=== PATIENT | female | born 1985 | race Caucasian/White ===

== ENCOUNTER 2017-12-14 08:57 | Emergency (ER) | payer OTHER ==
[2017-12-14 09:10] VITALS: BP 117/84; PULSE 64; TEMP 97.8; BMI 39.9
[2017-12-14 09:40] LABS: URINE APPEARANCE CLEAR; URINE BILIRUBIN NEGATIVE (<2.0 mg/dL); URINE COLOR YELLOW; URINE GLUCOSE (UA) 3+ (NEGATIVE); URINE KETONE NEGATIVE (NEGATIVE); URINE LEUK ESTERASE 2+ (NEGATIVE); URINE NITRITE NEGATIVE (NEGATIVE); URINE PROTEIN NEGATIVE (NEGATIVE); URINE UROBILINOGEN NEGATIVE mg/dL (0.2-1.0)
[2017-12-14 09:43] LABS: HCG,QUALITATIVE URINE Negative
[2017-12-14 10:03] LABS: EPI CELLS RARE /HPF (FEW); URINE MUCUS RARE
--- NOTE | 2017-12-14 10:11 | PDOC ---
History of Present Illness - General Chief Complaint: Urinary Problem Stated Complaint: URINE PAIN Time Seen by Provider: 12/14/17 09:58 History Source: Patient Exam Limitations: No Limitations - History of Present Illness Initial Comments: 12/14/17 09:58 c/o 3 days urinary burning and urgency no fever no chills no abd or back pain lmp one month ago denies vaginal discharge. Past History - Past Medical History Allergies/Adverse Reactions: Allergies Allergy/AdvReac Type Severity Reaction Status Date / Time No Known Allergies Allergy Verified 12/14/17 09:05 Home Medications: Ambulatory Orders Cephalexin [Keflex] 500 mg PO BID #6 capsule 12/14/17 Phenazopyridine HCl [Pyridium -] 200 mg PO TID #6 tablet 12/14/17 COPD: No - Surgical History Cholecystectomy: Yes - Immunization History Immunization Up to Date: Yes - Suicide/Smoking/Psychosocial Hx Smoking History: Never smoked Hx Alcohol Use: No Drug/Substance Use Hx: No *Physical Exam - Vital Signs Last Vital Signs Temp Pulse Resp BP Pulse Ox 97.8 F 64 18 117/84 97 12/14/17 09:06 12/14/17 09:06 12/14/17 09:06 12/14/17 09:06 12/14/17 09:06 - Physical Exam General Appearance: Yes: Nourished, Appropriately Dressed HEENT: positive: EOMI, HOMA, TMs Normal, Pharynx Normal Neck: positive: Supple. negative: Tender Respiratory/Chest: positive: Lungs Clear, Normal Breath Sounds. negative: Chest Tender Cardiovascular: positive: Regular Rhythm, Regular Rate Musculoskeletal: positive: Normal Inspection. negative: CVA Tenderness, CVA Tenderness (L), Decreased Range of Motion, Muscle Spasm Extremity: positive: Normal Capillary Refill, Normal Inspection, Normal Range of Motion Integumentary: positive: Normal Color, Dry, Warm Neurologic: positive: [place] rug setter II-XII NML intact, Fully Oriented, Alert, Normal Mood/ Affect, Normal Response, Motor Strength /5 ED Treatment Course - ADDITIONAL ORDERS Additional order review: Laboratory Results 12/14/17 09:22 Urine Color Yellow Urine Appearance Clear Urine pH 5.0 Ur Specific [place] 1.022 Urine Protein Negative Urine Glucose (UA) 3+ H D Urine Ketones Negative Urine Blood 1+ H Urine Nitrite Negative Urine Bilirubin Negative Urine Urobilinogen Negative Ur Leukocyte Esterase 2+ H Urine HCG, Qual Negative Medical Decision Making - Medical Decision Making 12/14/17 09:58 cc: urinary urgency dysuria no fever neg cva tenderness will treat for UTI *DC/Admit/Observation/Transfer Diagnosis at time of Disposition: Urinary tract infection Qualifiers: Urinary tract infection type: acute cystitis Hematuria presence: with hematuria Qualified Code(s): N30.01 - Acute cystitis with hematuria - Discharge Dispostion Disposition: HOME Condition at time of disposition: Good - Prescriptions Prescriptions: Cephalexin [Keflex] 500 mg PO BID #6 capsule Phenazopyridine HCl [Pyridium -] 200 mg PO TID #6 tablet - Referrals - Patient Instructions Printed Discharge Instructions: DI for Urinary Tract Infection (UTI) Additional Instructions: drink at least 2 liters of water a day take the medication as prescribed return if any fever, chills vomiting or other concerns - Post Discharge Activity
== END 2017-12-14 10:31 | disposition home or self-care (01) ==
LOC: JERFT 08:57
DX: N30.01 Acute cystitis with hematuria (principal)
CPT/HCPCS: 81003; 81015; 84703; 87086; 99281-25

== ENCOUNTER 2018-06-24 11:05 | Inpatient (IN) | payer MEDICARE, OTHER ==
[2018-06-24] MEDS ORDERED: ACETAMINOPHEN 325 MG TABLET (FP) PO ONE (11:39)
--- NOTE | 2018-06-24 11:39 | PDOC ---
History of Present Illness - General Chief Complaint: Urinary Problem Stated Complaint: TOTAL BODY PAIN Time Seen by Provider: 06/24/18 11:38 History Source: Patient Exam Limitations: No Limitations - History of Present Illness Initial Comments: 06/24/18 11:40 CHIEF COMPLAINT: Abdominal pain HISTORY OF PRESENT ILLNESS: This is a [id number] with a history of frequent urinary tract infections (last 2 months ago) who presents with five days of subjective fevers/chills/rigors, dysuria, bilateral flank pain, and abdominal pain. She denies nausea/vomiting/diarrhea, cough, chest pain, throat pain, headache, rash, or any other symptoms. Vital signs on arrival are notable for T 100.7 and HR 120 at rest. REVIEW OF SYSTEMS: GENERAL/CONSTITUTIONAL: Subjective fevers/chills/rigors. No night sweats or weight loss. HEAD, EYES, EARS, NOSE AND THROAT: No change in vision. No ear pain or discharge. No sore throat. CARDIOVASCULAR: No chest pain or shortness of breath RESPIRATORY: No cough or wheezing. GASTROINTESTINAL: Bilateral flank pain, abdominal pain. GENITOURINARY: Dysuria, urinary frequency. MUSCULOSKELETAL: No joint or muscle swelling or pain. No neck or back pain. SKIN: No rash or easy bruising. NEUROLOGIC: No headache, vertigo, loss of consciousness, or change in strength/ sensation. ENDOCRINE: No increased thirst. No abnormal weight change HEMATOLOGIC/LYMPHATIC: No anemia, easy bleeding, or history of blood clots. ALLERGIC/IMMUNOLOGIC: No hives or skin allergy. PHYSICAL EXAM: GENERAL: Awake, alert, and fully oriented, in some distress secondary to pain. HEAD: No signs of trauma, normocephalic, atraumatic. EYES: PERRLA, EOMI, sclera anicteric, conjunctiva clear. ENT: Auricles normal inspection, hearing grossly normal, nares patent, oropharynx clear without exudates. Moist mucosa. NECK: Normal ROM, supple, no lymphadenopathy, JVD, or masses. LUNGS: Breathing even and unlabored on room air. Speaks full sentences, clear to auscultation bilaterally. HEART: Regular rate and rhythm, normal S1 and S2, no murmurs, rubs or gallops, peripheral pulses normal and equal bilaterally. ABDOMEN: Bilateral flank tenderness, diffuse abdominal tenderness without peritoneal signs. EXTREMITIES : Normal inspection, Normal range of motion, no edema. No clubbing or cyanosis. No calf tenderness. Negative Homans' sign. NEUROLOGICAL: Cranial nerves II through XII grossly intact. Normal speech, normal gait. SKIN: Warm, Dry, normal turgor, no rashes or lesions noted. Past History - Past Medical History Allergies/Adverse Reactions: Allergies Allergy/AdvReac Type Severity Reaction Status Date / Time No Known Allergies Allergy Verified 06/24/18 11:20 Home Medications: Ambulatory Orders NK [No Known Home Medication] 06/24/18 COPD: No - Surgical History Cholecystectomy: Yes - Immunization History Immunization Up to Date: Yes - Suicide/Smoking/Psychosocial Hx Smoking History: Never smoked Hx Alcohol Use: No Drug/Substance Use Hx: No *Physical Exam - Vital Signs Last Vital Signs Temp Pulse Resp BP Pulse Ox 100.7 F H 120 H 20 156/78 97 06/24/18 11:21 06/24/18 11:21 06/24/18 11:21 06/24/18 11:21 06/24/18 11:21 ED Treatment Course - LABORATORY CBC & Chemistry Diagram: 06/24/18 11:53 06/24/18 11:58 Medical Decision Making - Medical Decision Making 06/24/18 12:03 A/P: 33-year-old female with urinary symptoms and SIRS. -Labs including CBC, CMP, lactic acid -UA, urine culture, urine -Blood cultures -NS 1L bolus -Tylenol 650mg PO for fever -Toradol 30mg IVP for pain if urine negative -CTAP non-contrast to evaluate for renal stone, evidence of pyelonephritis, less likely appendicitis -Re-assess 06/24/18 12:30 WBC 13.3 UA: leukocyte esterase neg, no WBC. Glucose 318 Na 128 (131 corrected for hyperglycemia) Urine ketones 4+ Urine glucose 3+ Likely new dx DM with sepsis of uncertain etiology (likely pyelo despite negative UA, given recent abx use). AG 13, bicarb 17. Will add on HgbA1C, VBG, acetone Will transfer to Main ED for further workup. Discussed with Dr. Polk.
[2018-06-24] MEDS ORDERED: SODIUM CHLORIDE 1,000 ML IV STA ×2 (11:44→15:09)
[2018-06-24 11:59] LABS: EPI CELLS 5.5 /HPF (0-5/HPF); HCG,QUALITATIVE URINE Negative; PH,URINE 5.5 (5.0-8.0); URINE APPEARANCE CLOUDY; URINE BACTERIA 215.4 /hpf (NEGATIVE); URINE BILIRUBIN NEGATIVE (NEGATIVE); URINE CASTS 15 /lpf (0-8); URINE COLOR YELLOW; URINE GLUCOSE (UA) 3+ (NEGATIVE); URINE KETONE 4+ (NEGATIVE); URINE LEUK ESTERASE NEGATIVE (NEGATIVE); URINE NITRITE NEGATIVE (NEGATIVE); URINE PROTEIN 1+ (NEGATIVE); URINE RBC 4 /hpf (0-4)
[2018-06-24] MEDS ORDERED: ACETAMINOPHEN 325 MG TABLET (FP) ONE (12:00)
[2018-06-24] MEDS ORDERED: KETOROLAC TROMETHAMINE 30 MG/1 ML VIAL IVPUSH ONE (12:16)
[2018-06-24 12:19] LABS: BASO % 0.5 % (0-2.0); EOS % 0.1 % (0-4.5); HEMATOCRIT 43.6 % (32.4-45.2); HEMOGLOBIN 14.9 GM/dL (10.7-15.3); LYMPH % 7.3 % (8-40); MCH 29.3 pg (25.7-33.7); MCHC 34.2 g/dl (32.0-36.0); MEAN CELL VOLUME 85.8 fl (80-96); MEAN PLT VOLUME 8.3 fl (7.5-11.1); MONO % 6.2 % (3.8-10.2); NEUT % 85.9 % (42.8-82.8); PLATELET COUNT 272 K/MM3 (134-434); RBC 5.08 M/mm3 (3.60-5.2); RDW 13.1 % (11.6-15.6); WHITE BLOOD COUNT 13.3 K/mm3 (4.0-10.0)
[2018-06-24 12:21] LABS: URINE WBC NONE SEEN /hpf (0-5)
[2018-06-24] MEDS ORDERED: KETOROLAC TROMETHAMINE 30 MG/1 ML VIAL ONE (12:21)
[2018-06-24 12:41] LABS: ALBUMIN 3.5 g/dl (3.4-5.0); ALK PHOS 140 U/L (45-117); ANION GAP 13 MMOL/L (8-16); BILIRUBIN,TOTAL 0.9 mg/dL (0.2-1); BLOOD UREA NITROGEN 6 mg/dL (7-18); CALCIUM 8.9 mg/dL (8.5-10.1); CHLORIDE 98 mmol/L (98-107); CO2 17 mmol/L (21-32); CREATININE 0.7 mg/dL (0.55-1.3); POTASSIUM 4.2 mmol/L (3.5-5.1); SGOT/AST 12 U/L (15-37); SGPT/ALT 19 U/L (13-61); SODIUM 128 mmol/L (136-145)
[2018-06-24 12:45] LABS: GLUCOSE,RANDOM 318 mg/dL (74-106)
[2018-06-24 13:20] LABS: VENOUS PC02 27.4 mmHg (41-51); VENOUS PH 7.38 (7.31-7.41); VENOUS PO2 58.9 mmHg (30-40)
--- NOTE | 2018-06-24 13:55 | PDOC ---
*Physical Exam - Vital Signs Last Vital Signs Temp Pulse Resp BP Pulse Ox 100.7 F H 120 H 20 156/78 97 06/24/18 11:21 06/24/18 11:21 06/24/18 11:21 06/24/18 11:21 06/24/18 11:21 Heart Score/ECG Review - ECG Impressions Comment:: 06/24/18 15:57 Twelve-lead EKG was performed and reviewed by me. There is normal sinus rhythm with a normal rate. Rate of 80 The axis is normal. The intervals are normal. There is normal R wave progression There are no ST or T wave abnormalities. Impression: Normal twelve-lead EKG ED Treatment Course - LABORATORY CBC & Chemistry Diagram: 06/25/18 05:40 06/25/18 05:40 - ADDITIONAL ORDERS Additional order review: Laboratory Results 06/24/18 06/24/18 06/24/18 13:16 13:00 13:00 VBG pH 7.38 POC VBG pCO2 27.4 L POC VBG pO2 58.9 H VBG HCO3 15.9 L VBG O2 Sat (Cyrus) 90.2 H VBG Base Excess -7.3 L Sodium Potassium Chloride Carbon Dioxide Anion Gap BUN Creatinine Creat Clearance w eGFR Random Glucose Hemoglobin A1c % 12.2 H Lactic Acid Calcium Total Bilirubin AST ALT Alkaline Phosphatase Total Protein Albumin Urine Color Urine Appearance Urine pH Ur Specific [place] Urine Protein Urine Glucose (UA) Urine Ketones Urine Blood Urine Nitrite Urine Bilirubin Urine Urobilinogen Ur Leukocyte Esterase Urine WBC (Auto) Urine RBC (Auto) Urine Casts (Auto) U Epithel Cells (Auto) Urine Bacteria (Auto) Urine HCG, Qual Acetone, Qual Positive moderate 2+ H 06/24/18 06/24/18 06/24/18 11:58 11:58 11:26 VBG pH POC VBG pCO2 POC VBG pO2 VBG HCO3 VBG O2 Sat (Cyrus) VBG Base Excess Sodium 128 L Potassium 4.2 Chloride 98 Carbon Dioxide 17 L Anion Gap 13 BUN 6 L Creatinine 0.7 Creat Clearance w eGFR 95.79 Random Glucose 318 H* Hemoglobin A1c % Lactic Acid 1.2 Calcium 8.9 Total Bilirubin 0.9 AST 12 L ALT 19 Alkaline Phosphatase 140 H Total Protein 8.0 Albumin 3.5 Urine Color Yellow Urine Appearance Cloudy Urine pH 5.5 Ur Specific [place] 1.040 H Urine Protein 1+ H Urine Glucose (UA) 3+ H Urine Ketones 4+ H Urine Blood 1+ H Urine Nitrite Negative Urine Bilirubin Negative Urine Urobilinogen 1.0 Ur Leukocyte Esterase Negative Urine WBC (Auto) None seen Urine RBC (Auto) 4 Urine Casts (Auto) 15 U Epithel Cells (Auto) 5.5 Urine Bacteria (Auto) 215.4 Urine HCG, Qual Negative Acetone, Qual 06/24/18 11:53 RBC 5.08 MCV 85.8 MCHC 34.2 RDW 13.1 MPV 8.3 Neutrophils % 85.9 H Lymphocytes % 7.3 L Monocytes % 6.2 Eosinophils % 0.1 Basophils % 0.5 - Medications Given in the ED: ED Medications Discontinued Medications Generic Name Dose Route Start Last Admin Trade Name Freq PRN Reason Stop Dose Admin Acetaminophen 650 mg 06/24/18 11:39 06/24/18 12:01 Tylenol - PO 06/24/18 11:40 650 mg ONCE ONE Administration Sodium Chloride 1,000 mls @ 1,000 mls/hr 06/24/18 11:44 06/24/18 11:59 Normal Saline - IV 06/24/18 12:43 1,000 mls/hr ASDIR STA Administration Ketorolac Tromethamine 30 mg 06/24/18 12:16 06/24/18 12:26 Toradol Injection - IVPUSH 06/24/18 12:17 30 mg ONCE ONE Administration Medical Decision Making - Medical Decision Making 06/24/18 13:55 The patient was seen and evaluated in conjunction with SHARON La under my direct supervision, ancillary studies were reviewed. I independently interviewed and evaluated the patient and I agree with the plan as outlined by SHARON La. 33y F hx of Uis in the past preseinting with a few days of subjective fevers associated with some back pain/dsyuria and abdominal pain. On exam pt no distress, abd soft nontender, b/l cva tenderness 06/24/18 14:11 sx cw pyelonephritis also noted to be newly diabetic without signs of dka will admit for further manangement as pt has clinical pyelo with systemic symptoms of fever and new dm 06/24/18 15:[address] dale agree with admission for further management of likely new onset dm and pyelo under dr. pretty caraballo [facility] for med surg will give a dose of subq insulin *DC/Admit/Observation/Transfer Diagnosis at time of Disposition: Hyperglycemia, Pyelonephritis - Discharge Dispostion Disposition: HOME Condition at time of disposition: Stable Decision to Admit order: Yes - Referrals - Patient Instructions - Post Discharge Activity
[2018-06-24] MEDS ORDERED: INSULIN (NOVOLOG) ASPART 100 UNITS/ML 10ML VIAL SQ ONE (15:02)
[2018-06-24] MEDS ORDERED: INSULIN (NOVOLOG) ASPART 100 UNITS/ML 10ML VIAL ONE (15:21)
--- NOTE | 2018-06-24 15:56 | HP ---
CHIEF COMPLAINT: dysuria PCP: none HISTORY OF PRESENT ILLNESS: 33 year old female with a pmh of frequent UTIs (multiple yearly since 2011) presents to the hospital for dysuria. Patient states that she has been feeling subjective fevers and chills since Wednesday (5 days). Yesterday, she noted suprapubic pain, dysuria, and bilateral flank pain. She reports she was last seen for UTI in April and experienced similar symptoms of dysuria but without the flank pain. She notably reports that for about one month, she has had polydipsia and polyuria, urinating more than 3 times every night. Patient denies any chest pain or shortness of breath, nausea, vomiting, diarrhea, headache, or epigastric abdominal pain. ER course was notable for: (1) T 100.7, tachycardia to 120 (2) UA 3+ glu/4+ ketones (3) Glucose 318 with A1C 12.2 Recent Travel: denies, patient is from [place] PAST MEDICAL HISTORY: frequent UTIs PAST SURGICAL HISTORY: denies Social History: Smoking: never Alcohol: never Drugs: never Family History: 2 healthy children, mother who is healthy, father years ago from throat cancer due to smoking Allergies No Known Allergies Allergy (Verified 06/24/18 11:20) HOME MEDICATIONS: Home Medications Medication Instructions Recorded NK [No Known Home Medication] 06/24/18 REVIEW OF SYSTEMS CONSTITUTIONAL: fever, chills Absent: diaphoresis, generalized weakness, malaise, loss of appetite, weight change HEENT: Absent: rhinorrhea, nasal congestion, throat pain, throat swelling, difficulty swallowing, mouth swelling, ear pain, eye pain, visual changes CARDIOVASCULAR: Absent: chest pain, syncope, palpitations, irregular heart rate, lightheadedness , peripheral edema RESPIRATORY: Absent: cough, shortness of breath, dyspnea with exertion, orthopnea, wheezing, stridor, hemoptysis GASTROINTESTINAL: Absent: abdominal pain, abdominal distension, nausea, vomiting, diarrhea, constipation, melena, hematochezia GENITOURINARY: flank pain, dysuria, frequency, Absent: urgency, hesitancy, hematuria, genital pain MUSCULOSKELETAL: Absent: myalgia, arthralgia, joint swelling, back pain, neck pain SKIN: Absent: rash, itching, pallor HEMATOLOGIC/IMMUNOLOGIC: Absent: easy bleeding, easy bruising, lymphadenopathy, frequent infections ENDOCRINE: Absent: unexplained weight gain, unexplained weight loss, heat intolerance, cold intolerance NEUROLOGIC: Absent: headache, focal weakness or paresthesias, dizziness, unsteady gait, seizure, mental status changes, bladder or bowel incontinence PSYCHIATRIC: Absent: anxiety, depression, suicidal or homicidal ideation, hallucinations. PHYSICAL EXAMINATION Vital Signs - 24 hr 06/24/18 11:21 Temperature 100.7 F H Pulse Rate 120 H Respiratory 20 Rate Blood Pressure 156/78 O2 Sat by Pulse 97 Oximetry (%) GENERAL: A&Ox3, no acute distress EYES: PERRLA, EOMI ENT: Dry mucus membranes NECK: No JVD LUNGS: CTA, no wheezes HEART: mildly tachycardic, no murmurs ABDOMEN: Soft, tender to palpation in the suprapubic region MUSCULOSKELETAL: No CVA Tenderness noted on exam EXTREMITIES: 2+ pulses, no edema. NEUROLOGICAL: Cranial nerves II-XII intact. Laboratory Results - last 24 hr 06/24/18 06/24/18 06/24/18 11:26 11:53 11:58 WBC 13.3 H RBC 5.08 Hgb 14.9 Hct 43.6 MCV 85.8 MCH 29.3 MCHC 34.2 RDW 13.1 Plt Count 272 MPV 8.3 Absolute Neuts (auto) 11.4 H Neutrophils % 85.9 H Lymphocytes % 7.3 L Monocytes % 6.2 Eosinophils % 0.1 Basophils % 0.5 Nucleated RBC % 0 VBG pH POC VBG pCO2 POC VBG pO2 VBG HCO3 VBG O2 Sat (Cyrus) VBG Base Excess Sodium 128 L Potassium 4.2 Chloride 98 Carbon Dioxide 17 L Anion Gap 13 BUN 6 L Creatinine 0.7 Creat Clearance w eGFR 95.79 Random Glucose 318 H* Hemoglobin A1c % Lactic Acid Calcium 8.9 Total Bilirubin 0.9 AST 12 L ALT 19 Alkaline Phosphatase 140 H Total Protein 8.0 Albumin 3.5 Lipase Urine Color Yellow Urine Appearance Cloudy Urine pH 5.5 Ur Specific [place] 1.040 H Urine Protein 1+ H Urine Glucose (UA) 3+ H Urine Ketones 4+ H Urine Blood 1+ H Urine Nitrite Negative Urine Bilirubin Negative Urine Urobilinogen 1.0 Ur Leukocyte Esterase Negative Urine WBC (Auto) None seen Urine RBC (Auto) 4 Urine Casts (Auto) 15 U Epithel Cells (Auto) 5.5 Urine Bacteria (Auto) 215.4 Urine HCG, Qual Negative Acetone, Qual 04/19/19 04/19/19 04/19/19 11:58 13:00 13:00 WBC RBC Hgb Hct MCV MCH MCHC RDW Plt Count MPV Absolute Neuts (auto) Neutrophils % Lymphocytes % Monocytes % Eosinophils % Basophils % Nucleated RBC % VBG pH POC VBG pCO2 POC VBG pO2 VBG HCO3 VBG O2 Sat (Cyrus) VBG Base Excess Sodium Potassium Chloride Carbon Dioxide Anion Gap BUN Creatinine Creat Clearance w eGFR Random Glucose Hemoglobin A1c % 12.2 H Lactic Acid 1.2 Calcium Total Bilirubin AST ALT Alkaline Phosphatase Total Protein Albumin Lipase Urine Color Urine Appearance Urine pH Ur Specific [place] Urine Protein Urine Glucose (UA) Urine Ketones Urine Blood Urine Nitrite Urine Bilirubin Urine Urobilinogen Ur Leukocyte Esterase Urine WBC (Auto) Urine RBC (Auto) Urine Casts (Auto) U Epithel Cells (Auto) Urine Bacteria (Auto) Urine HCG, Qual Acetone, Qual Positive moderate 2+ H 06/24/18 06/24/18 13:16 15:15 WBC RBC Hgb Hct MCV MCH MCHC RDW Plt Count MPV Absolute Neuts (auto) Neutrophils % Lymphocytes % Monocytes % Eosinophils % Basophils % Nucleated RBC % VBG pH 7.38 POC VBG pCO2 27.4 L POC VBG pO2 58.9 H VBG HCO3 15.9 L VBG O2 Sat (Cyrsu) 90.2 H VBG Base Excess -7.3 L Sodium Potassium Chloride Carbon Dioxide Anion Gap BUN Creatinine Creat Clearance w eGFR Random Glucose Hemoglobin A1c % Lactic Acid Calcium Total Bilirubin AST ALT Alkaline Phosphatase Total Protein Albumin Lipase 65 L Urine Color Urine Appearance Urine pH Ur Specific [place] Urine Protein Urine Glucose (UA) Urine Ketones Urine Blood Urine Nitrite Urine Bilirubin Urine Urobilinogen Ur Leukocyte Esterase Urine WBC (Auto) Urine RBC (Auto) Urine Casts (Auto) U Epithel Cells (Auto) Urine Bacteria (Auto) Urine HCG, Qual Acetone, Qual IMAGING CT Abdomen/Pelvis 1. Inflammatory stranding within the left upper quadrant about the tail of pancreas. Focal pancreatitis is suspected. Clinical and laboratory correlation is recommended. 2. Left perinephric stranding is also present and the possibility of left renal pathology, such as pyelonephritis, cannot be excluded. 3. No evidence of urinary tract calculi or obstructive uropathy. 4. No additional evidence of acute pathology within the abdomen or pelvis. Please see above discussion. ASSESSMENT/PLAN: 33 year old female with a pmh of frequent UTIs (multiple yearly since 2011) presents to the hospital for dysuria and is admitted for the treatment of sepsis 2/2 pyelonephritis and new onset diabetes #Sepsis 2/2 Pyelonephritis: patient has dysuria with CT evidence of perinephric inflammation, although UA is not overly impressive with 0 WBCs and negative leukocyte esterase; previous cultures done on recent visit showed cephalosporin- resistant staph saprophiticus -follow urine and blood cultures -obtain chest Xray -received 1 dose of levofloxacin in ED, continue levofloxacin -continue fluids -vitals BID #Diabetes Mellitus: new diagnosis, naive to insulin, does not meet criteria for DKA as patient is not acidotic without an anion gap, but she does lean toward it with positive ketones and decreased bicarbonate -A1C 12.2 -ABG non acidotic and patient does not have open anion gap -recheck blood glucose now and in AM -insulin 8U given by ED -BGM ACHS -insulin sliding scale coverage, conservative doses due to patient naivety to insulin #Hyponatremia: likely component of pseudo 2/2 blood glucose, corrected sodium 133 -continue hydration with normal saline #FEN -NS bolus and then LR @ 125/hr for 2 bags, then evaluate -continue hydration for hyponatremia, recheck labs now and in AM -diabetic diet now, recommend NPO if patient goes into DKA #Prophylaxis -heparin 5000 subq TID #Disposition -admit med surg, anticipate d/c within 2 days Visit type - Emergency Visit Emergency Visit: Yes ED Registration Date: 06/24/18 Care time: The patient presented to the Emergency Department on the above date and was hospitalized for further evaluation of their emergent condition. - New Patient This patient is new to me today: Yes Date on this admission: 06/24/18 - Critical Care Critical Care patient: No
[2018-06-24 17:06] VITALS: BMI 40.0
--- NOTE | 2018-06-24 17:09 | PN ---
Teaching Attending Note Name of Resident: Prudencio Quintero ATTENDING PHYSICIAN STATEMENT I saw and evaluated the patient. I reviewed the resident's note and discussed the case with the resident. I agree with the resident's findings and plan as documented. SUBJECTIVE:33yo F with PMH frequent UTI with most recently treated in 04/2018 with an unknown abx x7 days. states shes been having subjective fevers, chills and dysuria x5 days. worsened with suprapubic pain the past day which prompted her ER visit. Also endorses poyuria, polyphagia and polydipsia for several weeks. denies CP, SOB, N/V/C/D no family hx for DM. OBJECTIVE: Last Vital Signs Temp Pulse Resp BP Pulse Ox 99.3 F 83 18 145/75 100 06/24/18 16:55 06/24/18 16:55 06/24/18 16:55 06/24/18 16:55 06/24/18 16:32 General NAD CV S1 S2 RRR no murmur/rub/gallop Lungs CTA B/L no wheezing/rales/rhonchi Abdomen Soft NT/ND no CVA or suprapubic tenderness Extremities no pedal edema ASSESSMENT AND PLAN: 33yo F with PMH frequent UTI with most recently treated in 04/2018 with an unknown abx x7 days and found to be septic due to pylenoephritis and hyperglycemia 1. Sepsis due to Pyelonephritis- Medicine admission for IVF and IV abx. Tm 100.7 with tachycardia and leukocytosis with Left shift. will start levaquin based on previous sensitivities. LR @150cc/H. f/u Cx. CT images reviewed, also showing stranding of the tail of the pancreas however lipase is 65 and has no epigastric pain, do not believe there to be pancreatitis at this time 2. New onset DM- A1c 12.2. counselled on chcf consequences of uncontrolled diabetes. need for lifestyle modifications, compliance and follow up. verbalized understanding. will need RN teaching on insulin administration and BGM monitoring. dietary consult. start levemir 10 units tonight, bgm and iss. 3. pseudohyponatremia- corrected Na 133 4. Obesity- BMI 40. interested in bariatric surgery. will give referral on discharge 5. DVT ppx- lovenox
[2018-06-24] MEDS: LACTATED RINGERS SOLUTION 1,000 ML IV SCH (17:50)
[2018-06-24] MEDS: INSULIN SLIDING SCALE (NOVOLOG) 1 VIAL SQ SCH ×2 (17:52→22:01)
[2018-06-24] MEDS: ACETAMINOPHEN 325 MG TABLET (FP) PO PRN (18:46)
[2018-06-24 20:25] LABS: HEMATOCRIT 38.4 % (32.4-45.2); HEMOGLOBIN 13.2 GM/dL (10.7-15.3); MCH 29.5 pg (25.7-33.7); MCHC 34.3 g/dl (32.0-36.0); MEAN PLT VOLUME 8.4 fl (7.5-11.1); PLATELET COUNT 237 K/MM3 (134-434); RBC 4.46 M/mm3 (3.60-5.2); RDW 12.9 % (11.6-15.6); WHITE BLOOD COUNT 9.7 K/mm3 (4.0-10.0)
[2018-06-24 21:11] LABS: ALBUMIN 2.9 g/dl (3.4-5.0); ALK PHOS 104 U/L (45-117); ANION GAP 11 MMOL/L (8-16); BILIRUBIN,TOTAL 0.7 mg/dL (0.2-1); BLOOD UREA NITROGEN 8 mg/dL (7-18); CALCIUM 8.5 mg/dL (8.5-10.1); CHLORIDE 101 mmol/L (98-107); CO2 20 mmol/L (21-32); CREATININE 0.6 mg/dL (0.55-1.3); POTASSIUM 3.8 mmol/L (3.5-5.1); SGOT/AST 7 U/L (15-37); SGPT/ALT 16 U/L (13-61); SODIUM 132 mmol/L (136-145); TOT PROT 6.6 g/dl (6.4-8.2)
[2018-06-24 21:42] LABS: GLUCOSE,RANDOM 352 mg/dL (74-106)
[2018-06-24] MEDS ORDERED: INSULIN (LEVEMIR) 100 UNITS/ML UNITS SQ SCH (22:00)
[2018-06-24] MEDS: HEPARIN NA (PORCINE) 5,000 UNITS/ML 1ML VIAL SQ SCH (22:00)
[2018-06-25] MEDS: LACTATED RINGERS SOLUTION 1,000 ML IV SCH ×2 (01:00→15:20)
[2018-06-25] MEDS: HEPARIN NA (PORCINE) 5,000 UNITS/ML 1ML VIAL SQ SCH ×2 (06:02→14:22)
[2018-06-25] MEDS: INSULIN SLIDING SCALE (NOVOLOG) 1 VIAL SQ SCH ×2 (06:03→11:59)
[2018-06-25] MEDS: ACETAMINOPHEN 325 MG TABLET (FP) PO PRN ×2 (06:06→15:19)
[2018-06-25 06:16] LABS: HEMATOCRIT 36.2 % (32.4-45.2); HEMOGLOBIN 12.6 GM/dL (10.7-15.3); MCH 29.7 pg (25.7-33.7); MCHC 34.8 g/dl (32.0-36.0); MEAN CELL VOLUME 85.6 fl (80-96); MEAN PLT VOLUME 8.2 fl (7.5-11.1); PLATELET COUNT 224 K/MM3 (134-434); RBC 4.23 M/mm3 (3.60-5.2); RDW 12.6 % (11.6-15.6); WHITE BLOOD COUNT 8.5 K/mm3 (4.0-10.0)
[2018-06-25 06:52] LABS: ALBUMIN 2.6 g/dl (3.4-5.0); ALK PHOS 99 U/L (45-117); ANION GAP 10 MMOL/L (8-16); BILIRUBIN,TOTAL 0.6 mg/dL (0.2-1); BLOOD UREA NITROGEN 5 mg/dL (7-18); CHLORIDE 100 mmol/L (98-107); CO2 21 mmol/L (21-32); CREATININE 0.4 mg/dL (0.55-1.3); GLUCOSE,RANDOM 232 mg/dL (74-106); MAGNESIUM 1.5 mg/dL (1.8-2.4); PHOSPHOROUS 1.9 mg/dL (2.5-4.9); POTASSIUM 3.6 mmol/L (3.5-5.1); SGOT/AST 10 U/L (15-37); SGPT/ALT 15 U/L (13-61); SODIUM 131 mmol/L (136-145); TOT PROT 6.1 g/dl (6.4-8.2)
[2018-06-25] MEDS ORDERED: NAPH,MB-DB/K PH,MBDB POWDER PACKET PO ONE (08:43)
[2018-06-25] MEDS ORDERED: MAGNESIUM OXIDE 400 MG TABLET (FP) PO ONE (08:43)
[2018-06-25] MEDS ORDERED: PT OWN MED DRAWER 7, Y5N ONE (09:34)
[2018-06-25] MEDS ORDERED: levoFLOXacin 750 MG TABLET PO SCH (10:00)
--- NOTE | 2018-06-25 12:02 | DS ---
Physical Exam: SUBJECTIVE: Patient seen and examined. asymptomatic. denies CP, SOB, fever, chills, dysuria, N/V/C/D, urinary frequency OBJECTIVE: Vital Signs Period Temp Pulse Resp BP Sys/Ferguson Pulse Ox Last 24 Hr 98.7 F-100.2 F 81-94 18-20 118-145/57-82 100-100 PHYSICAL EXAM GENERAL: The patient is awake, alert, and fully oriented, in no acute distress. HEAD: Normal with no signs of trauma. EYES: PERRL, extraocular movements intact, sclera anicteric, conjunctiva clear. ENT: Ears normal, nares patent, oropharynx clear without exudates, moist mucous membranes. NECK: Trachea midline, full range of motion, supple. LUNGS: Breath sounds equal, clear to auscultation bilaterally, no wheezes, no crackles, no accessory muscle use. HEART: Regular rate and rhythm, S1, S2 without murmur, rub or gallop. ABDOMEN: Soft, nontender, nondistended, normoactive bowel sounds, no guarding, no rebound, no hepatosplenomegaly, no masses. no CVA tenderness EXTREMITIES: 2+ pulses, warm, well-perfused, no edema. NEUROLOGICAL: Cranial nerves II through XII grossly intact. Normal speech, gait not observed. PSYCH: Normal mood, normal affect. SKIN: Warm, dry, normal turgor, no rashes or lesions noted. LABS Laboratory Results - last 24 hr 06/24/18 06/24/18 06/24/18 11:26 11:53 11:58 WBC 13.3 H RBC 5.08 Hgb 14.9 Hct 43.6 MCV 85.8 MCH 29.3 MCHC 34.2 RDW 13.1 Plt Count 272 MPV 8.3 Absolute Neuts (auto) 11.4 H Neutrophils % 85.9 H Lymphocytes % 7.3 L Monocytes % 6.2 Eosinophils % 0.1 Basophils % 0.5 Nucleated RBC % 0 VBG pH POC VBG pCO2 POC VBG pO2 VBG HCO3 VBG O2 Sat (Cyrus) VBG Base Excess Sodium 128 L Potassium 4.2 Chloride 98 Carbon Dioxide 17 L Anion Gap 13 BUN 6 L Creatinine 0.7 Creat Clearance w eGFR 95.79 POC Glucometer Random Glucose 318 H* Hemoglobin A1c % Lactic Acid Calcium 8.9 Phosphorus Magnesium Total Bilirubin 0.9 AST 12 L ALT 19 Alkaline Phosphatase 140 H Total Protein 8.0 Albumin 3.5 Lipase TSH Urine Color Yellow Urine Appearance Cloudy Urine pH 5.5 Ur Specific [place] 1.040 H Urine Protein 1+ H Urine Glucose (UA) 3+ H Urine Ketones 4+ H Urine Blood 1+ H Urine Nitrite Negative Urine Bilirubin Negative Urine Urobilinogen 1.0 Ur Leukocyte Esterase Negative Urine WBC (Auto) None seen Urine RBC (Auto) 4 Urine Casts (Auto) 15 U Epithel Cells (Auto) 5.5 Urine Bacteria (Auto) 215.4 Urine HCG, Qual Negative Acetone, Qual 06/24/18 06/24/18 06/24/18 11:58 13:00 13:00 WBC RBC Hgb Hct MCV MCH MCHC RDW Plt Count MPV Absolute Neuts (auto) Neutrophils % Lymphocytes % Monocytes % Eosinophils % Basophils % Nucleated RBC % VBG pH POC VBG pCO2 POC VBG pO2 VBG HCO3 VBG O2 Sat (Cyrus) VBG Base Excess Sodium Potassium Chloride Carbon Dioxide Anion Gap BUN Creatinine Creat Clearance w eGFR POC Glucometer Random Glucose Hemoglobin A1c % 12.2 H Lactic Acid 1.2 Calcium Phosphorus Magnesium Total Bilirubin AST ALT Alkaline Phosphatase Total Protein Albumin Lipase TSH Urine Color Urine Appearance Urine pH Ur Specific [place] Urine Protein Urine Glucose (UA) Urine Ketones Urine Blood Urine Nitrite Urine Bilirubin Urine Urobilinogen Ur Leukocyte Esterase Urine WBC (Auto) Urine RBC (Auto) Urine Casts (Auto) U Epithel Cells (Auto) Urine Bacteria (Auto) Urine HCG, Qual Acetone, Qual Positive moderate 2+ H 06/24/18 06/24/18 06/24/18 13:16 15:15 16:58 WBC RBC Hgb Hct MCV MCH MCHC RDW Plt Count MPV Absolute Neuts (auto) Neutrophils % Lymphocytes % Monocytes % Eosinophils % Basophils % Nucleated RBC % VBG pH 7.38 POC VBG pCO2 27.4 L POC VBG pO2 58.9 H VBG HCO3 15.9 L VBG O2 Sat (Cyrus) 90.2 H VBG Base Excess -7.3 L Sodium Potassium Chloride Carbon Dioxide Anion Gap BUN Creatinine Creat Clearance w eGFR POC Glucometer 274 Random Glucose Hemoglobin A1c % Lactic Acid Calcium Phosphorus Magnesium Total Bilirubin AST ALT Alkaline Phosphatase Total Protein Albumin Lipase 65 L TSH Urine Color Urine Appearance Urine pH Ur Specific [place] Urine Protein Urine Glucose (UA) Urine Ketones Urine Blood Urine Nitrite Urine Bilirubin Urine Urobilinogen Ur Leukocyte Esterase Urine WBC (Auto) Urine RBC (Auto) Urine Casts (Auto) U Epithel Cells (Auto) Urine Bacteria (Auto) Urine HCG, Qual Acetone, Qual 06/24/18 06/24/18 06/24/18 20:00 20:00 21:58 WBC 9.7 RBC 4.46 Hgb 13.2 Hct 38.4 MCV 86.0 MCH 29.5 MCHC 34.3 RDW 12.9 Plt Count 237 MPV 8.4 Absolute Neuts (auto) Neutrophils % Lymphocytes % Monocytes % Eosinophils % Basophils % Nucleated RBC % VBG pH POC VBG pCO2 POC VBG pO2 VBG HCO3 VBG O2 Sat (Cyrus) VBG Base Excess Sodium 132 L Potassium 3.8 Chloride 101 Carbon Dioxide 20 L Anion Gap 11 BUN 8 Creatinine 0.6 Creat Clearance w eGFR 114.44 POC Glucometer 324 Random Glucose 352 H* Hemoglobin A1c % Lactic Acid Calcium 8.5 Phosphorus Magnesium Total Bilirubin 0.7 AST 7 L ALT 16 Alkaline Phosphatase 104 Total Protein 6.6 Albumin 2.9 L Lipase TSH Urine Color Urine Appearance Urine pH Ur Specific [place] Urine Protein Urine Glucose (UA) Urine Ketones Urine Blood Urine Nitrite Urine Bilirubin Urine Urobilinogen Ur Leukocyte Esterase Urine WBC (Auto) Urine RBC (Auto) Urine Casts (Auto) U Epithel Cells (Auto) Urine Bacteria (Auto) Urine HCG, Qual Acetone, Qual 06/25/18 06/25/18 06/25/18 05:40 05:40 06:01 WBC 8.5 RBC 4.23 Hgb 12.6 Hct 36.2 MCV 85.6 MCH 29.7 MCHC 34.8 RDW 12.6 Plt Count 224 MPV 8.2 Absolute Neuts (auto) Neutrophils % Lymphocytes % Monocytes % Eosinophils % Basophils % Nucleated RBC % VBG pH POC VBG pCO2 POC VBG pO2 VBG HCO3 VBG O2 Sat (Cyrus) VBG Base Excess Sodium 131 L Potassium 3.6 Chloride 100 Carbon Dioxide 21 Anion Gap 10 BUN 5 L Creatinine 0.4 L Creat Clearance w eGFR 182.72 POC Glucometer 239 Random Glucose 232 H Hemoglobin A1c % Lactic Acid Calcium 8.0 L Phosphorus 1.9 L Magnesium 1.5 L Total Bilirubin 0.6 AST 10 L ALT 15 Alkaline Phosphatase 99 Total Protein 6.1 L Albumin 2.6 L Lipase TSH 0.63 Urine Color Urine Appearance Urine pH Ur Specific [place] Urine Protein Urine Glucose (UA) Urine Ketones Urine Blood Urine Nitrite Urine Bilirubin Urine Urobilinogen Ur Leukocyte Esterase Urine WBC (Auto) Urine RBC (Auto) Urine Casts (Auto) U Epithel Cells (Auto) Urine Bacteria (Auto) Urine HCG, Qual Acetone, Qual HOSPITAL COURSE: Date of Admission:06/24/18 Date of Discharge: 06/25/18 Admitting diagnosis: sepsis due to pylenephritis, new onset DM PRe hospital course 33yo F with PMH frequent UTI with most recently treated in 04/2018 with an unknown abx x7 days. states shes been having subjective fevers, chills and dysuria x5 days. worsened with suprapubic pain the past day which prompted her ER visit. Also endorses poyuria, polyphagia and polydipsia for several weeks. denies CP, SOB, N/V/C/D no family hx for DM. SUbsequent hospital course Admitted to medicine. started on IVF and levaquin (based on previous cx). started on levemir 10 units. counselled in detail regarding lifestyle modifications and medication compliance. symptoms resolved. UCx came back contaminated. not repeated as already received abx and symptoms have resolved. d /c on levaquin and levemir. has appt wednesday with PMD Minutes to complete discharge: 40 Discharge Summary Reason For Visit: UTI HPERGLYCEMIA Current Active Problems Hyperglycemia (Acute) Pyelonephritis (Acute) Condition: Stable - Instructions Diet, Activity, Other Instructions: You were admitted to the hospital because you had an infection in your kidneys. You were started on antibiotics for this. Take them until completed even if your symptoms improve. You were also found to be diabetic while you were here and started on insulin therapy. Administer levemir 10 units prior to bed. CHeck your sugars before each meal and at bedtime and document them in a book. BRing that with you to your doctos appointment on wednesday. They will make changes to your insulin as needed. You should have your diabetic number (A1c) repeated in 3 months Follow the handouts given and follow a diabetic diet. You should work on dietary and exercise with goal to loose 1-2 lbs per week. By following a healthy diet this will eliminate risks factors for developing heart disease and controlling your blood pressure and diabetes. Follow up wtih your primary care doctor on Wednesday as you are scheduled. DIsuss with them your new diagnosis of diabetes and further management Information on a bariatric surgeon has been provided for you to follow up for surgery as you are intersted. return to the hospital if you develop fevers (temp >101), chest pain or difficulty breathing Disposition: HOME - Home Medications Comprehensive Discharge Medication List: Ambulatory Orders Alcohol Antiseptic Pads [Alcohol Prep Pads] 1 each ACHS #120 med..pad Insulin Detemir [Levemir Flextouch] 10 unit SQ HS #1 ml 06/25/18 Lancets/Blood Glucose Strips [Fora [id number] Strp-Lnct] 1 each ACHS # 120 combo..pkg 06/25/18 Miscellaneous Medical Supply [Glucometer Device] 1 each NR ASDIR #1 kit Pen Needle, Diabetic [[place]] 1 each HS #30 dis.needle 06/25/18 levoFLOXacin [Levaquin] 750 mg PO DAILY #5 tab 06/25/18 This patient is new to me today: No Emergency Visit: Yes ED Registration Date: 06/24/18 Care time: The patient presented to the Emergency Department on the above date and was hospitalized for further evaluation of their emergent condition. Critical Care patient: No - Discharge Referral Referred to [facility] No
--- NOTE | 2018-06-25 14:20 | EKG ---
Test Reason : Blood Pressure : / mmHG Vent. Rate : 080 BPM Atrial Rate : 080 BPM P-R Int : 184 ms QRS Dur : 100 ms QT Int : 384 ms P-R-T Axes : 051 079 059 degrees QTc Int : 442 ms NORMAL SINUS RHYTHM NORMAL ECG NO PREVIOUS ECGS AVAILABLE Confirmed by MD ROSALIA, ALVARADO ([id number]) on 06/25/2018 2:20:42 PM Referred By: Confirmed By:ALVARADO LINDSEY MD
[2018-06-25 14:56] VITALS: BP 145/83; PULSE 92; TEMP 100
== END 2018-06-25 16:57 | disposition home or self-care (01) | DRG 463 ==
LOC: JERFT 11:05 → JER 11:05 → JERBED 15:02 → J8W 18:06
PROVIDERS: ADMIT Internal Medicine; ATTEND Internal Medicine
DX: N10 Acute pyelonephritis (principal); R00.0 Tachycardia, unspecified; D72.829 Elevated white blood cell count, unspecified; E11.65 Type 2 diabetes mellitus with hyperglycemia; E87.1 Hypo-osmolality and hyponatremia; R50.9 Fever, unspecified; E66.01 Morbid (severe) obesity due to excess calories; Z68.41 Body mass index [BMI] 40.0-44.9, adult; R35.8 Other polyuria; R63.1 Polydipsia
CPT/HCPCS: 36415; 71045-TC-FY; 74176-TC; 80053; 81003; 82009; 82803; 82962; 83036; 83605; 83690; 83735; 84100; 84443; 84703; 85025; 85027; 87040; 87086; 93005; 93010; 99284-25; J1644; J7030

== ENCOUNTER 2020-07-01 09:00 | Inpatient (IN) | payer OTHER ==
[~2020-07-01 09:00] MED LIST: ELECTROLYTE-148 SOLN 1,000 ML IV SCH
[2020-07-01] MEDS ORDERED: ELECTROLYTE-148 SOLN 1,000 ML IV SCH ×2 (09:30→12:00)
[2020-07-01] MEDS ORDERED: CITRIC ACID/SODIUM CITRATE 30 ML UNIT-DOSE CUP PO ONE (09:45)
[2020-07-01 11:01] VITALS: BMI 38.7
[2020-07-01] MEDS ORDERED: ELECTROLYTE-148 SOLN 500 ML IV ONE (11:55)
[2020-07-01] MEDS: OXYTOCIN 20 UNITS in 0.9% NS 20 UNIT/1,000 ML INFUS.BAG IV SCH (12:45)
[2020-07-01] MEDS ORDERED: ePHEDrine SULFATE 50 MG/1 ML AMPULE ONE (12:47)
[2020-07-01] MEDS ORDERED: oxyCODONE HCL 5 MG TABLET PO PRN (13:04)
[2020-07-01] MEDS ORDERED: METHYLERGONOVINE MALEATE 0.2 MG/1 ML AMP IM PRN (13:04)
[2020-07-01] MEDS ORDERED: OXYTOCIN 20 UNITS in 0.9% NS 20 UNIT/1,000 ML INFUS.BAG IV ONE (14:21)
[2020-07-01] MEDS ORDERED: ACETAMINOPHEN 1000 MG/100 ML VIAL (NON FORMULARY) IVPB ONE (15:47)
[2020-07-02] MEDS: IBUPROFEN 600 MG TABLET (FP) PO PRN ×3 (05:44→22:31)
[2020-07-02] MEDS: ACETAMINOPHEN 325 MG TABLET (FP) PO PRN ×3 (05:44→22:30)
[2020-07-02] MEDS: SIMETHICONE 80 MG TAB.CHEW (FP) PO PRN ×2 (05:44→13:12)
[2020-07-02 08:52] LABS: BASO % 0.4 % (0-2.0); EOS % 1.8 % (0-4.5); HEMATOCRIT 31.1 % (32.4-45.2); HEMOGLOBIN 10.8 GM/dL (10.7-15.3); LYMPH % 18.5 % (8-40); MCH 30.9 pg (25.7-33.7); MCHC 34.7 g/dl (32.0-36.0); MEAN CELL VOLUME 89.1 fl (80-96); MONO % 7.1 % (3.8-10.2); NEUT % 72.2 % (42.8-82.8); PLATELET COUNT 237 K/MM3 (134-434); RBC 3.49 M/mm3 (3.60-5.2); RDW 13.4 % (11.6-15.6); WHITE BLOOD COUNT 10.9 K/mm3 (4.0-10.0)
[2020-07-02] MEDS ORDERED: BISACODYL 10 MG SUPP.RECT RC PRN (13:04)
[2020-07-03 08:58] VITALS: BP 126/76; PULSE 78; TEMP 97.3
[2020-07-03] MEDS: ACETAMINOPHEN 325 MG TABLET (FP) PO PRN (09:02)
[2020-07-03] MEDS: IBUPROFEN 600 MG TABLET (FP) PO PRN (09:02)
[2020-07-03] MEDS: SIMETHICONE 80 MG TAB.CHEW (FP) PO PRN (09:07)
[2020-07-03] MEDS: OXYTOCIN 20 UNITS in 0.9% NS 20 UNIT/1,000 ML INFUS.BAG IV SCH (13:17)
== END 2020-07-03 16:30 | disposition home or self-care (01) | DRG 540 ==
LOC: JLDR 09:00 → J3W 14:54
PROVIDERS: ADMIT Obstetrics & Gynecology; ATTEND Obstetrics & Gynecology
PROC: 10D00Z1 Extraction of Products of Conception, Low, Open Approach (ICD-10-PCS; principal; 2020-07-01 11:30)
DX: O34.211 Maternal care for low transverse scar from previous cesarean delivery (principal); Z3A.39 39 weeks gestation of pregnancy; Z37.0 Single live birth; O99.214 Obesity complicating childbirth; E66.9 Obesity, unspecified; Z86.39 Personal history of other endocrine, nutritional and metabolic disease; Z98.84 Bariatric surgery status
CPT/HCPCS: 36415; 80053; 82962; 85025; 85610; 86850; 86900; 86901; 88307-TC; C9803; J0131; U0003; U0005

== ENCOUNTER 2023-01-06 22:42 | Emergency (ER) | payer OTHER ==
[2023-01-06 22:54] VITALS: BP 114/74; PULSE 81; RESP 18; TEMP 97.3; BMI 36.4
[2023-01-06] MEDS ORDERED: FAMOTIDINE 20 MG/50 ML IVPB 20 MG/50 ML MG IVPB ONE ×2 (23:11→23:36)
[2023-01-06] MEDS ORDERED: SODIUM CHLORIDE 0.9% 500 ML INFUS.BAG IV ONE (23:11)
[2023-01-06] MEDS ORDERED: ACETAMINOPHEN 1000 MG/100 ML BAG IVPB ONE (23:11)
[2023-01-06] MEDS ORDERED: ONDANSETRON 4 MG/2 ML VIAL IVPUSH ONE (23:11)
[2023-01-06] MEDS ORDERED: MAG HYDROX/AL HYDROX/SIMETH 30 ML UNIT-DOSE CUP PO ONE (23:25)
[2023-01-06] MEDS ORDERED: ACETAMINOPHEN INJECTION 100 ML IVPB ONE (23:35)
[2023-01-06] MEDS ORDERED: ONDANSETRON 4 MG/2 ML VIAL ONE (23:35)
[2023-01-06 23:50] LABS: BASO % 0.6 % (0-2.0); EOS % 1.9 % (0-4.5); HEMATOCRIT 36.9 % (32.4-45.2); HEMOGLOBIN 11.6 GM/dL (10.7-15.3); LYMPH % 6.2 % (8-40); MCH 21.8 pg (25.7-33.7); MCHC 31.5 g/dl (32.0-36.0); MEAN CELL VOLUME 69.3 fl (80-96); MEAN PLT VOLUME 8.2 fl (7.5-11.1); MONO % 5.7 % (3.8-10.2); NEUT % 85.6 % (42.8-82.8); PLATELET COUNT 388 10^3/uL (134-434); RBC 5.33 M/mm3 (3.60-5.2); RDW 16.8 % (11.6-15.6); WHITE BLOOD COUNT 14.4 K/mm3 (4.0-10.0)
[2023-01-06] MEDS ORDERED: MAG HYDROX/AL HYDROX/SIMETH 30 ML UNIT-DOSE CUP ONE (23:51)
[2023-01-07 00:01] LABS: ALBUMIN 3.8 g/dl (3.4-5.0); BLOOD UREA NITROGEN 12.6 mg/dL (7-18); CALCIUM 8.4 mg/dL (8.5-10.1)
[2023-01-07 00:04] LABS: CREATININE 0.6 mg/dL (0.55-1.3)
[2023-01-07 00:06] LABS: BILIRUBIN,TOTAL 0.2 mg/dL (0.2-1); TOT PROT 8.2 g/dl (6.4-8.2)
[2023-01-07 05:52] LABS: ANISOCYTOSIS 3+; MACROCYTOSIS 0
[2023-01-07 09:09] LABS: OVALOCYTE 1+
== END 2023-01-07 00:58 | disposition home or self-care (01) ==
LOC: JER 22:42
PROC: 3E033GC Introduction of Other Therapeutic Substance into Peripheral Vein, Percutaneous Approach (ICD-10-PCS; principal; 2023-01-06)
PROC: 3E033NZ Introduction of Analgesics, Hypnotics, Sedatives into Peripheral Vein, Percutaneous Approach (ICD-10-PCS; 2023-01-06)
PROC: 3E033GC Introduction of Other Therapeutic Substance into Peripheral Vein, Percutaneous Approach (ICD-10-PCS; 2023-01-06)
DX: R10.13 Epigastric pain (principal); R11.2 Nausea with vomiting, unspecified; R19.7 Diarrhea, unspecified; Z20.822 Contact with and (suspected) exposure to COVID-19
CPT/HCPCS: 0241U-QW; 36415; 80053; 83690; 84703; 85025; 99284-25